=== PATIENT | female | born 1985 | race American Indian/Alaskan Native ===

== ENCOUNTER 2019-03-22 21:32 | Emergency (ER) | payer MEDICAID ==
[2019-03-22 21:53] VITALS: BP 124/80
== END 2019-03-23 00:50 | disposition left against medical advice (07) ==
LOC: ED 21:32
DX: N89.8 Other specified noninflammatory disorders of vagina (principal); Z53.21 Procedure and treatment not carried out due to patient leaving prior to being seen by health care provider